=== PATIENT | female | born 1980 ===

== ENCOUNTER 2018-04-27 06:05 | Day surgery (SDC) | payer OTHER ==
[~2018-04-27 06:05] MED LIST: CRESTOR5 MG; SYNTHROID200 MCG PO
== END 2018-04-27 20:20 | disposition home or self-care (01) ==
LOC: CIR.AMB 06:05
DX: N83.291 Other ovarian cyst, right side (principal); N73.6 Female pelvic peritoneal adhesions (postinfective); Z30.2 Encounter for sterilization